=== PATIENT | female | born 1950 ===

== ENCOUNTER 2025-03-17 09:49 | Outpatient (REF) | payer MEDICARE, SELFPAY ==
--- NOTE | 2025-03-17 | EMG_ITS ---
Chief complaint:?G62.9 Polyneuropathy, unspecified Reason for referral: Neuropathy and pain Referred by:?Sonu Pennington MD Procedure done: Bilateral lower extremities NCS/EMG Bilateral peroneal and tibial motor studies were performed with F responses. Tibial H-reflexes are obtained. Bilateral superficial peroneal and sural sensory studies were performed an EMG needle examination was performed. Findings: Right peroneal motor response was absent. Left-sided amplitudes were [id number] early diminished with mild slowing of conduction velocity. Tibial motor studies revealed mild delayed distal latencies. Sensory studies were absent. H reflexes were absent. Paraspinal needle examination was normal. Impression: [id number]-ex-xnqlzi axonal sensory and motor peripheral neuropathy [place] [id number] 2 extremities MTDD
== END 2025-03-17 09:50 | disposition home or self-care (01) ==
LOC: HO.NEURO 09:49
PROVIDERS: Visit Provider Internal Medicine
DX: M79.605 Pain in left leg (principal); M79.604 Pain in right leg; G62.9 Polyneuropathy, unspecified
CPT/HCPCS: 95886; 95911

== ENCOUNTER → 2025-03-17 10:15 | Outpatient (BNV) | payer MEDICARE, SELFPAY | PROVIDERS: Visit Provider Psychiatry & Neurology Neurology | DX: G62.89 Other specified polyneuropathies (principal) | CPT/HCPCS: 95886; 95911 ==